=== PATIENT | female | born 1990 | race Caucasian/White ===

== ENCOUNTER → 2016-11-28 | Day surgery (SDC) | payer OTHER | END | disposition home or self-care (01) | LOC: JRADIR 09:31 | PROVIDERS: ATTEND Obstetrics & Gynecology | PROC: BU12YZZ Fluoroscopy of Bilateral Fallopian Tubes using Other Contrast (ICD-10-PCS; principal; 2016-11-28) | DX: N97.9 Female infertility, unspecified (principal) | CPT/HCPCS: 36415; 58340; 74740-TC; 76000-TC; 84702; Q9967 ==

== ENCOUNTER 2018-08-07 02:20 | Inpatient (IN) | payer OTHER | END 2018-08-10 13:25 | disposition home or self-care (01) | LOC: JDEL 02:20 → JLDR 06:00 → J3W 21:10 ==

== ENCOUNTER 2021-06-25 18:57 | Inpatient (IN) | payer OTHER ==
[2021-06-25 21:22] LABS: BASO % 0.3 % (0-2.0); EOS % 0.2 % (0-4.5); HEMATOCRIT 35.9 % (32.4-45.2); HEMOGLOBIN 12.4 GM/dL (10.7-15.3); LYMPH % 16.1 % (8-40); MCH 30.2 pg (25.7-33.7); MCHC 34.6 g/dl (32.0-36.0); MEAN CELL VOLUME 87.4 fl (80-96); MEAN PLT VOLUME 8.2 fl (7.5-11.1); MONO % 11.4 % (3.8-10.2); PLATELET COUNT 239 10^3/uL (134-434); RBC 4.11 M/mm3 (3.60-5.2); RDW 14.1 % (11.6-15.6); WHITE BLOOD COUNT 11.3 K/mm3 (4.0-10.0)
[2021-06-25 21:47] LABS: CALCIUM 8.6 mg/dL (8.5-10.1)
[2021-06-25 21:48] LABS: BLOOD UREA NITROGEN 5.8 mg/dL (7-18)
[2021-06-25 21:51] LABS: CREATININE 0.5 mg/dL (0.55-1.3)
[2021-06-25 21:52] LABS: ACTIVATED PTT 28.9 SECONDS (25.2-36.5); INR 0.97 (0.83-1.09); PROTHROMBIN TIME (PATIENT) 11.2 SEC (9.7-13.0)
[2021-06-25] MEDS ORDERED: morphine SULFATE/PF 1 MG/2 ML (2cc Syringe - QUVA) EP ONE (22:07)
[2021-06-25] MEDS ORDERED: IBUPROFEN 600 MG TABLET (FP) PO PRN (22:07)
[2021-06-25] MEDS ORDERED: ACETAMINOPHEN 325 MG TABLET (FP) PO PRN ×2 (22:07→22:39)
[2021-06-25] MEDS ORDERED: ONDANSETRON 4 MG/2 ML VIAL IVPUSH PRN (22:07)
[2021-06-25] MEDS ORDERED: morphine SULFATE/PF 1 MG/2 ML (2cc Syringe - QUVA) ONE (22:18)
[2021-06-25] MEDS ORDERED: SODIUM CHLORIDE 0.9% P/F 10 ML VIAL IJ ONE (22:20)
[2021-06-25] MEDS ORDERED: ceFAZolin SODIUM 1 GM VIAL ONE (22:20)
[2021-06-25] MEDS ORDERED: METHYLERGONOVINE MALEATE 0.2 MG/1 ML AMP IM PRN (22:39)
[2021-06-25] MEDS ORDERED: IBUPROFEN 800 MG/8 ML IJ IVPB PRN (22:39)
[2021-06-25] MEDS ORDERED: ELECTROLYTE-148 SOLN 1,000 ML IV SCH (22:45)
[2021-06-25] MEDS ORDERED: OXYTOCIN 10 UNITS/ML VIAL ONE (23:06)
[2021-06-25 23:25] VITALS: BMI 36.2
[2021-06-26] MEDS ORDERED: OXYTOCIN 10 UNITS/ML VIAL ONE (00:22)
[2021-06-26] MEDS ORDERED: ONDANSETRON 4 MG/2 ML VIAL ONE (00:22)
[2021-06-26] MEDS ORDERED: KETOROLAC TROMETHAMINE 30 MG/1 ML VIAL ONE (00:22)
[2021-06-26] MEDS ORDERED: MIDAZOLAM HCL 2 MG/2 ML SINGLE DOSE VIAL ONE (00:35)
[2021-06-26] MEDS: OXYTOCIN 20 UNITS in 0.9% NS 20 UNIT/1,000 ML INFUS.BAG IV SCH ×2 (01:00→06:24)
[2021-06-26] MEDS ORDERED: OXYTOCIN 20 UNITS in 0.9% NS 20 UNIT/1,000 ML INFUS.BAG IV ONE ×2 (01:22→06:22)
[2021-06-26 01:51] LABS: CORD BASE EXCESS -4.2 mmol/L (0-2); CORD HCO3 24.6 mmHg (20-29); CORD PCO2 60.3 mmHg (30-78); CORD pH 7.229 (7.14-7.44)
[2021-06-26 01:52] LABS: CORD BASE EXCESS -1.2 mmol/L (0-2); CORD HCO3 25.9 mmHg (20-29); CORD PCO2 52.1 mmHg (30-78); CORD pH 7.314 (7.14-7.44)
[2021-06-26 07:57] LABS: BASO % 0.5 % (0-2.0); HEMATOCRIT 33.3 % (32.4-45.2); HEMOGLOBIN 11.7 GM/dL (10.7-15.3); MCH 30.6 pg (25.7-33.7); MCHC 35.1 g/dl (32.0-36.0); MEAN CELL VOLUME 87.3 fl (80-96); MEAN PLT VOLUME 8.1 fl (7.5-11.1); MONO % 8.4 % (3.8-10.2); NEUT % 83.1 % (42.8-82.8); PLATELET COUNT 250 10^3/uL (134-434); RBC 3.81 M/mm3 (3.60-5.2); RDW 13.6 % (11.6-15.6); WHITE BLOOD COUNT 14.5 K/mm3 (4.0-10.0)
[2021-06-26] MEDS ORDERED: oxyCODONE HCL 5 MG TABLET PO PRN (10:39)
[2021-06-26 10:41] LABS: HIV INTERPRETATION NEGATIVE (NEGATIVE)
[2021-06-26] MEDS: FERROUS SO4 325 MG TABLET (FP) PO SCH ×2 (11:08→17:36)
[2021-06-26] MEDS: PRENATAL VITAMINS W/ FOLIC ACID TABLET (FP) PO SCH (11:08)
[2021-06-26] MEDS ORDERED: IBUPROFEN 600 MG TABLET (FP) PO ONE (16:22)
[2021-06-26] MEDS: IBUPROFEN 600 MG TABLET (FP) PO PRN (16:25)
[2021-06-26] MEDS ORDERED: BISACODYL 10 MG SUPP.RECT RC PRN (22:39)
[2021-06-27] MEDS: SIMETHICONE 80 MG TAB.CHEW (FP) PO PRN ×4 (03:28→21:28)
[2021-06-27] MEDS: IBUPROFEN 600 MG TABLET (FP) PO PRN ×4 (03:28→21:28)
[2021-06-27] MEDS: FERROUS SO4 325 MG TABLET (FP) PO SCH ×2 (08:38→17:13)
[2021-06-27] MEDS: PRENATAL VITAMINS W/ FOLIC ACID TABLET (FP) PO SCH (09:34)
[2021-06-27] MEDS ORDERED: oxyCODONE HCL 5 MG TABLET PO PRN (10:39)
[2021-06-28] MEDS: IBUPROFEN 600 MG TABLET (FP) PO PRN ×2 (06:31→17:21)
[2021-06-28 07:58] LABS: BASO % 0.4 % (0-2.0); EOS % 0.8 % (0-4.5); HEMATOCRIT 31.5 % (32.4-45.2); HEMOGLOBIN 10.6 GM/dL (10.7-15.3); LYMPH % 26.1 % (8-40); MCH 30.1 pg (25.7-33.7); MCHC 33.6 g/dl (32.0-36.0); MEAN CELL VOLUME 89.6 fl (80-96); MEAN PLT VOLUME 8.5 fl (7.5-11.1); MONO % 7.5 % (3.8-10.2); NEUT % 65.2 % (42.8-82.8); PLATELET COUNT 260 10^3/uL (134-434); RBC 3.51 M/mm3 (3.60-5.2); RDW 13.9 % (11.6-15.6); WHITE BLOOD COUNT 8.6 K/mm3 (4.0-10.0)
[2021-06-28] MEDS: FERROUS SO4 325 MG TABLET (FP) PO SCH ×2 (08:31→17:21)
[2021-06-28] MEDS: PRENATAL VITAMINS W/ FOLIC ACID TABLET (FP) PO SCH (09:56)
[2021-06-28] MEDS: SIMETHICONE 80 MG TAB.CHEW (FP) PO PRN (17:21)
[2021-06-29] MEDS: OXYTOCIN 20 UNITS in 0.9% NS 20 UNIT/1,000 ML INFUS.BAG IV SCH (07:17)
[2021-06-29 08:32] VITALS: BP 121/79; PULSE 83; TEMP 98
[2021-06-29] MEDS: SIMETHICONE 80 MG TAB.CHEW (FP) PO PRN (08:43)
[2021-06-29] MEDS: IBUPROFEN 600 MG TABLET (FP) PO PRN (08:44)
[2021-06-29] MEDS: FERROUS SO4 325 MG TABLET (FP) PO SCH ×2 (08:44→17:45)
[2021-06-29] MEDS: PRENATAL VITAMINS W/ FOLIC ACID TABLET (FP) PO SCH ×2 (08:44→09:25)
== END 2021-06-29 20:45 | disposition home or self-care (01) | DRG 833 ==
LOC: JLDR 18:57 → J3W 06-26 17:04
PROVIDERS: ADMIT Obstetrics & Gynecology; ATTEND Obstetrics & Gynecology
DX: O34.211 Maternal care for low transverse scar from previous cesarean delivery (principal); Z3A.38 38 weeks gestation of pregnancy; Z37.0 Single live birth
CPT/HCPCS: 36415; 36600; 80048; 82803; 85025; 85610; 85730; 86780; 86850; 86900; 86901; 87389; 88307-TC; C9803-CS; U0003; U0005